=== PATIENT | female | born 1965 | race African-American/Black ===

== ENCOUNTER 2018-05-23 22:16 | Inpatient (IN) | payer OTHER ==
[~2018-05-23] VITALS: Ht 165.1 cm; Wt 74.7 kg
[~2018-05-23 22:16] MED LIST: ALBU17AE16 IH
[2018-05-23] MEDS ORDERED: ALBU8HFA PO (22:27)
[2018-05-23] MEDS ORDERED: ATOR20TA65 PO (22:27)
[2018-05-23] MEDS ORDERED: LISI10TA7 PO (22:27)
[2018-05-23 22:57] LABS: EOSINOPHILS % (AUTO) 3.5 % (1.0-6.0); HEMATOCRIT 36.4 % (36-46); LYMPHOCYTES # (AUTO) 3.2 K/uL (1.0-4.8); LYMPHOCYTES % (AUTO) 51.3 % (22.0-44.0); MEAN CORPUSCULAR VOLUME 91 fL (80-100); MONOCYTES # (AUTO) 0.5 K/uL (0.1-1.0); NEUTROPHILS # (AUTO) 2.2 K/uL (1.8-7.7); NEUTROPHILS % (AUTO) 36.2 % (40.0-70.0); PLATELET COUNT (AUTO) 315 K/uL (150-450); RED BLOOD CELL COUNT(AUTO) 4.01 MIL/uL (4.00-5.20); RED CELL DISTRIBUTION WIDTH 13.2 % (11.5-14.5)
[2018-05-23 23:07] LABS: ANION GAP 7 mmol/L (8-16); CALCIUM, TOTAL 8.6 mg/dL (8.8-10.5); CARBON DIOXIDE 28 mmol/L (22-29); CHLORIDE 107 mmol/L (98-107); CREATININE 0.92 mg/dL (0.60-1.30); GLOMERULAR FILTR. RATE CALC > 60 mL/min (>60); GLUCOSE,RANDOM 85 mg/dL (70-110); POTASSIUM 3.4 mmol/L (3.5-5.1); SODIUM SERUM 142 mmol/L (136-145); UREA NITROGEN, BLOOD 18 mg/dL (7-18)
[2018-05-23 23:13] LABS: ALANINE AMINOTRANSFERASE 16 U/L (12-78); ALBUMIN 3.7 g/dL (3.4-5.0); ALKALINE PHOSPHATASE 103 U/L (46-116); ASPARTATE AMINOTRANSFERASE 16 U/L (15-37); BILIRUBIN,TOTAL 0.4 mg/dL (0.1-1.0); TOTAL PROTEIN, SERUM 7.6 g/dL (6.4-8.2)
[2018-05-24] MEDS ORDERED: ASPIRIN 81 MG CHEWABLE TABLET PO ONE (00:45)
[2018-05-24] MEDS ORDERED: NITROGLYCERIN 2% (1 GM=INCH) PACKET TP ONE (00:45)
[2018-05-24 01:19] LABS: B-TYPE NATRIURETIC PEPTIDE 12 pg/mL (0-100)
[2018-05-24] MEDS ORDERED: 0.9% SODIUM CHLORIDE 10 ML SYRINGE IVP PRN (01:30)
[2018-05-24] MEDS ORDERED: ONDANSETRON HCL 4 MG/2 ML VIAL IVP PRN (01:30)
[2018-05-24 02:07] VITALS: BP 112/67
[2018-05-24 04:52] VITALS: BP 105/64
[2018-05-24] MEDS: ACETAMINOPHEN 325 MG TABLET PO PRN ×4 (06:09→22:07)
[2018-05-24 11:27] VITALS: BP 102/65
[2018-05-24] MEDS ORDERED: POTASSIUM CHLORIDE 20 MEQ ER TABLET PO PRN (15:00)
[2018-05-24] MEDS ORDERED: POTASSIUM CHL 10 MEQ/WATER 50 ML IV PRN (15:00)
[2018-05-24 15:03] VITALS: BP 122/66
[2018-05-24 19:46] VITALS: BP 109/80
[2018-05-24 23:52] VITALS: BP 110/68
[2018-05-25 04:31] VITALS: BP 134/71
[2018-05-25] MEDS ORDERED: ACETAMINOPHEN 325 MG TABLET PO PRN ×2 (04:45→11:00)
[2018-05-25 07:50] VITALS: BP 132/61
[2018-05-25] MEDS ORDERED: MAGNESIUM HYDROXIDE SUSPENSION 30 ML UDCUP PO PRN (11:00)
[2018-05-25 11:25] VITALS: BP 137/80
[2018-05-25] MEDS: ASPIRIN 81 MG CHEWABLE TABLET PO SCH (11:30)
[2018-05-25 11:48] LABS: MAGNESIUM 1.8 mg/dL (1.80-2.40); THYROID STIMULATING HORMONE 1.34 uIU/mL (0.36-3.74)
[2018-05-25 15:23] LABS: POTASSIUM 4.5 mmol/L (3.5-5.1)
[2018-05-25 15:48] VITALS: BP 113/71
[2018-05-25 19:52] VITALS: BP 114/76
[2018-05-25] MEDS: DOCUSATE SODIUM 100 MG CAPSULE PO SCH (20:34)
[2018-05-25 23:26] VITALS: BP 121/81
[2018-05-26 04:38] VITALS: BP 121/78
[2018-05-26 07:16] VITALS: BP 127/85
[2018-05-26] MEDS ORDERED: PANTOPRAZOLE SODIUM 40 MG DR TABLET PO SCH (09:00)
[2018-05-26] MEDS: DOCUSATE SODIUM 100 MG CAPSULE PO SCH (09:00)
[2018-05-26] MEDS: ASPIRIN 81 MG CHEWABLE TABLET PO SCH (09:17)
[2018-05-26 11:03] VITALS: BP 116/72
== END 2018-05-26 12:35 | disposition home or self-care (01) | DRG 203 ==
LOC: EMS 22:17 → 5N 05-24 01:09
PROVIDERS: ADMIT Internal Medicine; ATTEND Internal Medicine
DX: R07.89 Other chest pain (principal); E78.00 Pure hypercholesterolemia, unspecified; I10 Essential (primary) hypertension; J45.909 Unspecified asthma, uncomplicated; F45.9 Somatoform disorder, unspecified; F17.210 Nicotine dependence, cigarettes, uncomplicated; Z82.49 Family history of ischemic heart disease and other diseases of the circulatory system; Z83.3 Family history of diabetes mellitus; E87.6 Hypokalemia
CPT/HCPCS: 83735; 84132; 84443; 90686; 93005; 93306; G0378

== ENCOUNTER 2022-03-03 10:49 | Emergency (ER) | payer MEDICAID, OTHER ==
[~2022-03-03] VITALS: Ht 162.6 cm; Wt 63.6 kg
[~2022-03-03 10:49] MED LIST changes: -ALBU17AE16 IH; +ALBU8HFA PO; +ATOR20TA65 PO
[2022-03-03] MEDS ORDERED: LISI-893 PO (11:04)
[2022-03-03] MEDS ORDERED: GABA-1201 PO ×2 (11:04→11:05)
[2022-03-03] MEDS ORDERED: MIRT-89 PO (11:04)
[2022-03-03] MEDS ORDERED: GABAPENTIN 300 MG CAPSULE PO ONE (11:30)
[2022-03-03] MEDS ORDERED: KETOROLAC TROMETHAMINE 10 MG TABLET PO ONE (11:30)
[2022-03-03] MEDS ORDERED: GABA-1181 PO (11:47)
[2022-03-03] MEDS ORDERED: NAPR-1025 PO (11:47)
[2022-03-03 11:55] LABS: BASOPHILS % (AUTO) 1.2 % (0.0-2.0); EOSINOPHILS % (AUTO) 1.7 % (1.0-6.0); HEMATOCRIT 35.7 % (36-46); LYMPHOCYTES # (AUTO) 2.2 K/uL (1.0-4.8); LYMPHOCYTES % (AUTO) 44.5 % (22.0-44.0); MEAN CORPUSCULAR HEMOGLOBIN 31.7 pg (26.0-34.0); MEAN CORPUSCULAR HGB CONC 33.5 G/dL (31.0-37.0); MEAN CORPUSCULAR VOLUME 95 fL (80-100); MONOCYTES # (AUTO) 0.4 K/uL (0.1-1.0); NEUTROPHILS # (AUTO) 2.2 K/uL (1.8-7.7); NEUTROPHILS % (AUTO) 43.6 % (40.0-70.0); PLATELET COUNT (AUTO) 271 K/uL (150-450); RED BLOOD CELL COUNT(AUTO) 3.78 MIL/uL (4.00-5.20); RED CELL DISTRIBUTION WIDTH 14.6 % (11.5-14.5)
[2022-03-03 12:06] LABS: ANION GAP 12 mmol/L (8-16); CALCIUM, TOTAL 8.8 mg/dL (8.8-10.5); CARBON DIOXIDE 26 mmol/L (22-29); CHLORIDE 104 mmol/L (98-107); CREATININE 0.86 mg/dL (0.60-1.30); GLUCOSE,RANDOM 79 mg/dL (70-110); POTASSIUM 3.1 mmol/L (3.5-5.1); SODIUM SERUM 142 mmol/L (136-145); UREA NITROGEN, BLOOD 10 mg/dL (7-18)
[2022-03-03 12:08] LABS: GLOMERULAR FILTR. RATE CALC > 60 mL/min (>60)
[2022-03-03 12:13] LABS: ALANINE AMINOTRANSFERASE 36 U/L (12-78); ALBUMIN 3.8 g/dL (3.4-5.0); ALKALINE PHOSPHATASE 69 U/L (46-116); ASPARTATE AMINOTRANSFERASE 40 U/L (15-37); BILIRUBIN,TOTAL 0.6 mg/dL (0.1-1.0); TOTAL PROTEIN, SERUM 7.5 g/dL (6.4-8.2)
[2022-03-03] MEDS ORDERED: POTASSIUM CHLORIDE 20 MEQ ER TABLET PO ONE (13:00)
[2022-03-03 13:30] VITALS: BP 130/78
== END 2022-03-03 13:45 | disposition home or self-care (01) ==
LOC: EMS 11:05
DX: M79.2 Neuralgia and neuritis, unspecified (principal); I10 Essential (primary) hypertension; E78.00 Pure hypercholesterolemia, unspecified; J45.909 Unspecified asthma, uncomplicated; Z79.899 Other long term (current) drug therapy
CPT/HCPCS: 80053; 85025; 99284